=== PATIENT | male | born 1975 | race Caucasian/White ===

== ENCOUNTER 2016-12-15 15:09 | Observation (INO) | payer BC ==
[~2016-12-15 15:09] MED LIST changes: +DIPRIVAN VIAL ONE; +NEOSTIGMINE INJ ONE; +NORCURON INJ 10 MG VIAL ONE; -NS 100 ML IV 100 ML IV ONE; +QUELICIN (OR ANECTINE) ONE; +REGLAN INJ 10 MG VIAL ONE; +ROBINUL ONE; +SUPRANE IN ONE; +VERSED ONE; +XYLOCAINE 2 % (PLAIN) ONE; +ZOFRAN INJ 4 MG VIAL ONE
[2016-12-15 16:53] LABS: BASOPHILS # (AUTO) 0.1 X10^3/uL (0.0-0.1); BASOPHILS % (AUTO) 0.3 % (0.2-1.0); EOSINOPHILS % (AUTO) 0.1 % (0.9-2.9); HEMOGLOBIN 17.8 g/dL (13.5-18.0); LYMPHOCYTES # (AUTO) 1.6 X10^3/uL (1.3-2.9); LYMPHOCYTES % (AUTO) 8.4 % (21.0-51.0); MEAN CORPUSCULAR HEMOGLOBIN 28.3 pg (27.0-34.0); MEAN CORPUSCULAR HGB CONC 34.2 g/dL (33.0-35.0); MEAN CORPUSCULAR VOLUME 82.7 fL (80.0-100.0); MEAN PLATELET VOLUME 8.6 fL (7.4-11.0); MONOCYTES # (AUTO) 1.5 x10^3/uL (0.3-0.8); MONOCYTES % (AUTO) 7.8 % (0.0-13.0); NEUTROPHILS # (AUTO) 16.2 x10^3/uL (2.2-4.8); NEUTROPHILS % (AUTO) 83.4 % (42.0-75.0); PLATELET COUNT 305 X10^3/uL (150.0-450.0); RED BLOOD COUNT 6.29 X10^6/uL (4.7-6.0); RED CELL DISTRIBUTION WIDTH 14.4 % (11.6-16.5); WHITE BLOOD COUNT 19.4 X10^3/uL (3.6-10.0)
--- NOTE | 2016-12-15 16:58 | RAD ---
HISTORY: Preop for appendectomy Study: Portable chest Comparison: None Findings: The trachea is midline. The cardiac silhouette is unremarkable. The lungs are clear without focal infiltrate or effusion. The bony thorax is unremarkable. IMPRESSION: 1. No acute cardiopulmonary disease. Reported By:
[2016-12-15] MEDS: DILAUDID INJ IVP PRN (17:08)
[2016-12-15] MEDS: NS 1000 ML 1,000 ML IV SCH (17:08)
[2016-12-15 17:09] LABS: ALANINE AMINOTRANSFERASE 45 Units/L (12-78); ALBUMIN 3.6 g/dL (3.4-5.0); ALKALINE PHOSPHATASE 105 Units/L (46-116); ASPARTATE AMINO TRANSFERASE 17 Units/L (15-37); BLOOD UREA NITROGEN 12 mg/dL (7-18); CALCIUM 9.2 mg/dL (8.5-10.1); CARBON DIOXIDE 28.8 mmol/L (21-32); CHLORIDE 98 mmol/L (98-107); COR NA(FOR HYPERGLY) 137 mmol/L (136-145); CREATININE 1.14 mg/dL (0.70-1.30); GLUCOSE 111 mg/dL (65-99); SODIUM 137 mmol/L (136-145); TOTAL PROTEIN 7.8 g/dL (6.4-8.2); eGFR BLACK RACES > 60 (>60); eGFR NON BLACK RACES > 60 (>60)
[2016-12-15] MEDS ORDERED: NS 100 ML IV 100 ML IV ONE (17:21)
[2016-12-15] MEDS ORDERED: ZOSYN VIAL 3.375 GM IV ONE (17:21)
[2016-12-15] MEDS: ZOSYN VIAL 3.375 GM 3.375 GM in NS 100 ML IV + SPIKE MINIBAG* 100 ML IV SCH (17:28)
[2016-12-15] MEDS ORDERED: LR 1000 ML IV 1,000 ML IV ONE (18:33)
[2016-12-15] MEDS ORDERED: ANCEF VIAL 1 GM ONE ×2 (18:33→18:40)
[2016-12-15] MEDS ORDERED: FENTANYL INJ 250 mcg ONE (18:33)
[2016-12-15] MEDS ORDERED: NS 50 ML IV + SPIKE MINIBAG* 50 ML IV ONE (18:33)
[2016-12-15] MEDS ORDERED: XYLOCAINE 1 % (PLAIN) ONE (19:00)
[2016-12-15] MEDS ORDERED: MARCAINE 0.25% WITH EPI IJ ONE (19:00)
[2016-12-15 19:16] LABS: BILIRUBIN,URINE NEGATIVE (NEGATIVE); BLOOD/HEMOGLOBIN,URINE NEGATIVE (NEGATIVE); GLUCOSE, URINE NEGATIVE (NEGATIVE); KETONES,URINE NEGATIVE (NEGATIVE); LEUKOCYTE ESTERASE ,URINE NEGATIVE (NEGATIVE); NITRITES,URINE NEGATIVE (NEGATIVE); PH,URINE 6.5 (5.0 - 8.0); PROTEIN,URINE 1+ (NEGATIVE); UROBILINOGEN,URINE NORMAL (NORMAL)
[2016-12-15 19:28] LABS: APPEARANCE,URINE CLEAR (CLEAR); COLOR,URINE YELLOW (YELLOW); RBC,URINE NONE SEEN /HPF (NEGATIVE)
[2016-12-15 19:29] LABS: BACTERIA,URINE TRACE /HPF (NEGATIVE); SQUAMOUS EPITHELIAL CELL,UR RARE /HPF (NEGATIVE)
--- NOTE | 2016-12-15 19:30 | DR.UPDATE ---
H&P Update History and Physical Update: WAS SEEN TODAY IN OUR OFFICE. A H&P WAS COMPLETED PRIOR TO ADMISSION. PATIENT HAS BEEN SEEN AND EXAMINED WITH NO CHANGES NOTED. Changes noted: NO Yes with the following:
[2016-12-15] MEDS ORDERED: NS IRRIGATION 1000 ML 1,000 ML IR ONE (19:33)
[2016-12-15] MEDS ORDERED: ZOFRAN INJ 4 MG VIAL IVP PRN ×2 (20:02→20:24)
[2016-12-15] MEDS ORDERED: DILAUDID INJ IVP PRN (20:24)
[2016-12-15] MEDS ORDERED: REGLAN INJ 10 MG VIAL IVP PRN (20:24)
[2016-12-15] MEDS ORDERED: PHENERGAN INJ 25 MG IVP PRN (20:24)
[2016-12-15] MEDS ORDERED: BENADRYL INJ 50 MG VIAL IVP PRN (20:24)
[2016-12-15] MEDS ORDERED: DILAUDID INJ IVP ONE (20:42)
[2016-12-15] MEDS ORDERED: DILAUDID INJ ONE (20:44)
[2016-12-15 21:49] VITALS: BMI 32.6
[2016-12-15] MEDS: NORCO 5/325 MG TAB PO PRN (22:16)
[2016-12-16] MEDS: DILAUDID INJ IVP PRN ×2 (00:02→12:18)
[2016-12-16] MEDS: ZOSYN VIAL 3.375 GM 3.375 GM in NS 100 ML IV + SPIKE MINIBAG* 100 ML IV SCH ×5 (00:17→23:41)
[2016-12-16] MEDS: NORCO 5/325 MG TAB PO PRN ×2 (03:25→17:33)
[2016-12-16] MEDS: NS 1000 ML 1,000 ML IV SCH ×2 (05:22→21:34)
[2016-12-16 05:40] LABS: ALANINE AMINOTRANSFERASE 40 Units/L (12-78); ALBUMIN 3.1 g/dL (3.4-5.0); ALKALINE PHOSPHATASE 92 Units/L (46-116); ASPARTATE AMINO TRANSFERASE 13 Units/L (15-37); BLOOD UREA NITROGEN 14 mg/dL (7-18); CALCIUM 8.5 mg/dL (8.5-10.1); CARBON DIOXIDE 27.4 mmol/L (21-32); CHLORIDE 100 mmol/L (98-107); COR CA(FOR HYPOALB) 9.2 mg/dL (8.5-10.1); COR NA(FOR HYPERGLY) 138 mmol/L (136-145); CREATININE 1.25 mg/dL (0.70-1.30); GLUCOSE 120 mg/dL (65-99); SODIUM 138 mmol/L (136-145); TOTAL PROTEIN 7.2 g/dL (6.4-8.2); eGFR BLACK RACES > 60 (>60); eGFR NON BLACK RACES > 60 (>60)
[2016-12-16 05:44] LABS: BASOPHILS % (AUTO) 0.1 % (0.2-1.0); EOSINOPHILS % (AUTO) 0.1 % (0.9-2.9); HEMATOCRIT 48.2 % (42.0-54.0); HEMOGLOBIN 16.3 g/dL (13.5-18.0); LYMPHOCYTES # (AUTO) 1.5 X10^3/uL (1.3-2.9); LYMPHOCYTES % (AUTO) 7.9 % (21.0-51.0); MEAN CORPUSCULAR HEMOGLOBIN 28.5 pg (27.0-34.0); MEAN CORPUSCULAR HGB CONC 33.8 g/dL (33.0-35.0); MEAN CORPUSCULAR VOLUME 84.3 fL (80.0-100.0); MEAN PLATELET VOLUME 9.3 fL (7.4-11.0); MONOCYTES # (AUTO) 1.4 x10^3/uL (0.3-0.8); MONOCYTES % (AUTO) 7.8 % (0.0-13.0); NEUTROPHILS # (AUTO) 15.5 x10^3/uL (2.2-4.8); NEUTROPHILS % (AUTO) 84.1 % (42.0-75.0); PLATELET COUNT 307 X10^3/uL (150.0-450.0); RED BLOOD COUNT 5.72 X10^6/uL (4.7-6.0); RED CELL DISTRIBUTION WIDTH 14.6 % (11.6-16.5); WHITE BLOOD COUNT 18.5 X10^3/uL (3.6-10.0)
[2016-12-16] MEDS ORDERED: PATIENT'S HOME MEDICATION (Losartan/Hydrochlorothiazide [Losartan-Hctz 100-25 Mg Tab] 1 TA PO SCH (09:00)
[2016-12-16] MEDS ORDERED: PHENTERMINE HCL PO SCH (09:00)
[2016-12-16] MEDS: HYZAAR 50/12.5 MG PO SCH (09:20)
[2016-12-16] MEDS: PROCARDIA XL PO SCH (09:20)
--- NOTE | 2016-12-16 17:05 | PCM.PROG ---
Progress Note - Progress Note for Day of Date: 12/16/16 - Subjective Subjective: WAS ADMITTED YESTERDAY FOR ACUTE APPENDICITIS. A LAPROSCOPIC APPENDECTOMY WAS DONE YESTERDAY EVENING. HE IS AWAKE AND ORIENTED ON MORNING ROUNDS. VITALS THIS AM ARE 98.5, 115, 20, 91%, 143/76. LABS WNL EXCEPT WBC 18.5, AST 13, ALBUMIN 3.1. WE WILL RECHECK LABS IN AM AND PLAN TO DISCHARGE WHEN IS READY. - Past Medical Family Social History Past Med/Fam/Surg Hx: No changes since H&P Allergies: Allergies No Known Drug Allergies Allergy (Verified 12/15/16 15:58) - Review of Systems ROS: No change since H&P - Vital Signs and I&O's Vital Signs: Temperature 99.1 F Pulse Rate [Right Brachial] 105 Pulse Rate 88 Respiratory Rate 20 Blood Pressure [Right Arm] 121/80 Blood Pressure 135/72 O2 Sat by Pulse Oximetry 90 Intake and Output: Intake & Output 12/14/16 12/15/16 12/16/16 12/17/16 11:59 11:59 11:59 11:59 Intake Total 200 840 Output Total 2200 Balance -2000 840 - Physical Exam Oriented: Normal. negative: Time, Person, Place, Not Oriented, Unable to test, Other Eyes: Normal. negative: Blurred Vision, Diplopia, Discharge, Pain, Redness, Photophobia, Other Ear: Normal. negative: Right, Left, Swelling, Ecchymosis, Hemotypanum, Abrasion , Laceration Nose: Normal. negative: Injected, Discharge, Blood, Other Throat: Normal. negative: Tonsillar Hypertrophy, Red, Exudate, Dry, Other Respiratory: Normal. negative: Right, Left, Generalized, Superior, Inferior, Diminished, Wheezes, Rales, Rhonchi, OTHER : Normal. negative: Dysuria, Hematuria, Frequency, Discharge, Testicular Pain , Bleeding, , Other Auscultation: Bowel Sounds: Normal. negative: Bruit, Absent, Increased, Decreased, High Pitched, Other Palpation: Normal Tenderness: RLQ, Moderate Skin: Normal. negative: Decreased Turgur, Rash, Papular, Macular, Maculopapular , Vesicular, Pustular, Petechial, Red, Tender, Hot, Diaphoresis, Wound, Bruising , Ecchymosis, Other Musculoskeletal: Normal. negative: Right, Left, Shoulder, Clavicle, Arm, Elbow , Forearm, Wrist, Hand, Hip, Thigh, Knee, Leg, Ankle, Foot, Back:Thoracic, Back: Lumbar, Back:Midline, Back:Paraspinous, Pelvis, Swelling, Tender, Deformity, Pulse Deficit, Motor Deficit, Sensory Deficit, Instability, Crepitance Psychiatric: Normal Mood Description: Calm Affect: Normal Speech Pattern: Clear, Appropriate - Laboratory and Diagnostics Result Diagrams: 12/16/16 03:45 12/16/16 03:45 Labs: Laboratory WBC 18.5 X10^3/uL (3.6-10.0) H 12/16/16 03:45 RBC 5.72 X10^6/uL (4.7-6.0) 12/16/16 03:45 Hgb 16.3 g/dL (13.5-18.0) 12/16/16 03:45 Hct 48.2 % (42.0-54.0) 12/16/16 03:45 MCV 84.3 fL (80.0-100.0) 12/16/16 03:45 MCH 28.5 pg (27.0-34.0) 12/16/16 03:45 MCHC 33.8 g/dL (33.0-35.0) 12/16/16 03:45 RDW 14.6 % (11.6-16.5) 12/16/16 03:45 Plt Count 307 X10^3/uL (150.0-450.0) 12/16/16 03:45 MPV 9.3 fL (7.4-11.0) 12/16/16 03:45 Neut % 84.1 % (42.0-75.0) H 12/16/16 03:45 Lymph % 7.9 % (21.0-51.0) L 12/16/16 03:45 [place] % 7.8 % (0.0-13.0) 12/16/16 03:45 Eos % 0.1 % (0.9-2.9) L 12/16/16 03:45 Baso % 0.1 % (0.2-1.0) L 12/16/16 03:45 Neut # 15.5 x10^3/uL (2.2-4.8) H 12/16/16 03:45 Lymph # 1.5 X10^3/uL (1.3-2.9) 12/16/16 03:45 [place] # 1.4 x10^3/uL (0.3-0.8) H 12/16/16 03:45 Eos # 0.0 x10^3/uL (0.0-0.2) 12/16/16 03:45 Baso # 0.0 X10^3/uL (0.0-0.1) 12/16/16 03:45 Absolute Nucleated RBC 0.1 /100WBC 12/16/16 03:45 Sodium 138 mmol/L (136-145) 12/16/16 03:45 Corrected Sodium 138 mmol/L (136-145) 12/16/16 03:45 Potassium 4.0 mmol/L (3.5-5.1) 12/16/16 03:45 Chloride 100 mmol/L (98-107) 12/16/16 03:45 Carbon Dioxide 27.4 mmol/L (21-32) 12/16/16 03:45 BUN 14 mg/dL (7-18) 12/16/16 03:45 Creatinine 1.25 mg/dL (0.70-1.30) 12/16/16 03:45 Est GFR (MDRD) Af Amer > 60 (>60) 12/16/16 03:45 Est GFR (MDRD) Non-Af > 60 (>60) 12/16/16 03:45 Glucose 120 mg/dL (65-99) H 12/16/16 03:45 Calcium 8.5 mg/dL (8.5-10.1) 12/16/16 03:45 Corrected Calcium 9.2 mg/dL (8.5-10.1) 12/16/16 03:45 Total Bilirubin 0.80 mg/dL (0.2-1.0) 12/16/16 03:45 AST 13 Units/L (15-37) L 12/16/16 03:45 ALT 40 Units/L (12-78) 12/16/16 03:45 Alkaline Phosphatase 92 Units/L (46-116) 12/16/16 03:45 Total Protein 7.2 g/dL (6.4-8.2) 12/16/16 03:45 Albumin 3.1 g/dL (3.4-5.0) L 12/16/16 03:45 Globulin 4.1 g/dL (2.5-4.5) 12/16/16 03:45 Albumin/Globulin Ratio 0.8 Ratio (1.1-2.1) L 12/16/16 03:45 Specimen Type Clean catch urine 12/15/16 19:00 Urine Color Yellow (YELLOW) 12/15/16 19:00 Urine Appearance Clear (CLEAR) 12/15/16 19:00 Urine pH 6.5 (5.0 - 8.0) 12/15/16 19:00 Ur Specific [place] 1.010 (1.000-1.030) 12/15/16 19:00 Urine Protein 1+ (NEGATIVE) 12/15/16 19:00 Urine Glucose (UA) Negative (NEGATIVE) 12/15/16 19:00 Urine Ketones Negative (NEGATIVE) 12/15/16 19:00 Urine Occult Blood Negative (NEGATIVE) 12/15/16 19:00 Urine Nitrite Negative (NEGATIVE) 12/15/16 19:00 Urine Bilirubin Negative (NEGATIVE) 12/15/16 19:00 Urine Urobilinogen Normal (NORMAL) 12/15/16 19:00 Ur Leukocyte Esterase Negative (NEGATIVE) 12/15/16 19:00 Urine RBC None seen /HPF (NEGATIVE) 12/15/16 19:00 Urine WBC None seen /HPF (NEGATIVE) 12/15/16 19:00 Ur Squamous Epith Cells Rare /HPF (NEGATIVE) 12/15/16 19:00 Urine Bacteria Trace /HPF (NEGATIVE) 12/15/16 19:00 Ur Culture Indicated? No/not indicated 12/15/16 19:00 Tissue Pathology To follow 12/15/16 20:03 - Plan (1) Acute appendicitis Status: Acute Qualifiers: Acute appendicitis type: A Plan: S/P APPENDECTOMY, CONTINUE ZOSYN 3.375 IV Q6H, DILAUDID 1MG IV Q4PRN, NORCO PO, CONTINUE TO MONITOR
[2016-12-17] MEDS: NORCO 5/325 MG TAB PO PRN (03:23)
[2016-12-17 05:14] LABS: BASOPHILS % (AUTO) 0.3 % (0.2-1.0); EOSINOPHILS # (AUTO) 0.1 x10^3/uL (0.0-0.2); EOSINOPHILS % (AUTO) 1.1 % (0.9-2.9); HEMATOCRIT 46.2 % (42.0-54.0); HEMOGLOBIN 15.7 g/dL (13.5-18.0); LYMPHOCYTES # (AUTO) 2.3 X10^3/uL (1.3-2.9); LYMPHOCYTES % (AUTO) 21.4 % (21.0-51.0); MEAN CORPUSCULAR HEMOGLOBIN 28.7 pg (27.0-34.0); MEAN CORPUSCULAR VOLUME 84.3 fL (80.0-100.0); MEAN PLATELET VOLUME 8.9 fL (7.4-11.0); MONOCYTES % (AUTO) 9.4 % (0.0-13.0); NEUTROPHILS # (AUTO) 7.2 x10^3/uL (2.2-4.8); NEUTROPHILS % (AUTO) 67.8 % (42.0-75.0); PLATELET COUNT 285 X10^3/uL (150.0-450.0); RED BLOOD COUNT 5.48 X10^6/uL (4.7-6.0); RED CELL DISTRIBUTION WIDTH 14.7 % (11.6-16.5); WHITE BLOOD COUNT 10.6 X10^3/uL (3.6-10.0)
[2016-12-17 05:18] LABS: ALANINE AMINOTRANSFERASE 26 Units/L (12-78); ALBUMIN 2.9 g/dL (3.4-5.0); ALKALINE PHOSPHATASE 85 Units/L (46-116); ASPARTATE AMINO TRANSFERASE 12 Units/L (15-37); BLOOD UREA NITROGEN 10 mg/dL (7-18); CALCIUM 8.8 mg/dL (8.5-10.1); CARBON DIOXIDE 27.2 mmol/L (21-32); CHLORIDE 100 mmol/L (98-107); COR CA(FOR HYPOALB) 9.7 mg/dL (8.5-10.1); CREATININE 1.16 mg/dL (0.70-1.30); GLUCOSE 97 mg/dL (65-99); SODIUM 136 mmol/L (136-145); TOTAL PROTEIN 7.3 g/dL (6.4-8.2); eGFR BLACK RACES > 60 (>60); eGFR NON BLACK RACES > 60 (>60)
[2016-12-17] MEDS: ZOSYN VIAL 3.375 GM 3.375 GM in NS 100 ML IV + SPIKE MINIBAG* 100 ML IV SCH (05:52)
[2016-12-17 08:10] VITALS: BP 114/74
[2016-12-17] MEDS: PROCARDIA XL PO SCH (08:50)
[2016-12-17] MEDS: HYZAAR 50/12.5 MG PO SCH (08:50)
== END 2016-12-17 10:25 | disposition home or self-care (01) ==
LOC: MED/SURG 15:09
PROVIDERS: ADMIT Internal Medicine; ATTEND Internal Medicine
PROC: 0DTJ4ZZ Resection of Appendix, Percutaneous Endoscopic Approach (ICD-10-PCS; principal; 2016-12-16)
DX: K35.89 Other acute appendicitis (principal)
CPT/HCPCS: 36415; 71010; 80053; 81001; 85025; 93005; A4216; A4222; S0020; G0378; J0330; J0690; J1170; J2001; J2250; J2405; J2543; J2710; J2765; J3010; J3490; J7120

== ENCOUNTER → 2016-12-15 | Outpatient (CLI) | payer BC ==
[2012-10-04 13:30] VITALS: BP 126/81
[~2016-12-15] MED LIST: NS 100 ML IV 100 ML IV ONE
--- NOTE | 2016-12-15 14:26 | CT ---
HISTORY: ACUTE ABDOMINAL BLOATING. Study: CT abdomen and pelvis with contrast Comparison: None. Technique: Multiple axial images of the abdomen and pelvis were obtained from the lung bases to the pubic symph ysis after the administration of IV contrast. Dose reduction techniques including Automated Exposur e Control (AEC) and adjustment of mA and kV were utilized. Findings: Bibasilar scarring versus atelectasis. Otherwise, visualized portions of the lung bases are unremark able. 3 cm simple appearing cyst within the left superior renal pole. Punctate nonobstructing right inferior renal pole nephrolith. Diffuse fatty infiltration of the liver with focal fatty sparing at the gallbladder fossa. Otherwise, the spleen, pancreas, kidneys, and adrenal glands are unremarkable in their CT appearance. The gallbladder is unremarkable in its CT appearance. The appendix is dila blake to 17 of mm with associated para appendiceal stranding. There is a foci of air at the appendicea l tip, that may represent micro perforation. No associated focal fluid collection to suggest abscess formation. No significant free air or free fluid is seen within the abdomen. No pathologic lymphade nopathy. Remaining large and small bowel appear normal. The prostate gland appears normal. The urina ry bladder is grossly unremarkable. The bony structures are grossly intact. IMPRESSION: 1. Acute appendicitis with suggestion of micro perforation at the tip. No significant free air with in the abdomen or associated focal fluid collection to suggest abscess formation. 2. Other chronic findings as above. Reported By:
== END ==
LOC: RAD 12:57
PROVIDERS: ATTEND Nurse Practitioner
DX: R10.84 Generalized abdominal pain (principal); R14.0 Abdominal distension (gaseous)
CPT/HCPCS: 74177; A4222

== ENCOUNTER 2016-12-22 09:14 | Emergency (ER) | payer BC ==
--- NOTE | 2016-12-22 09:19 | DR.GENAD ---
HPI - HPI Comment HPI Comment: Complaint of short of breath right lung x 1 day. - Nurses notes reviewed Nurses Notes Review: Yes - Source History Provided: Patient - Mode of Arrival Mode of Arrival: Ambulatory - Timing Came on: Suddenly - Duration Duration: Constant How lon Duration: Days - Location Location: right lung - Severity Severity: Moderate - Modifying Factors Worsens:: movement PMH - PMH Past Medical History: Yes Past Surgical History: Yes Surgical History: Appendectomy Unable to Obtain Due To: denies: Altered mental status, Dementia, Medical urgency, Intubated - Family History Family Medical History: Heart Failure - Social History Does patient currently use any type of tobacco product: No Lives With: Spouse Lives Where: Home ROS - Review of Systems Constitutional: No Symptoms Reported Eyes: No Symptoms Reported ENTM: No Symptoms Reported Respiratoy: Short of Breath Cardiovascular: Chest Pain (right ribs) Gastrointestinal/Abdominal: No Symptoms Reported Genitourinary: No Symptoms Reported Neurological: No Symptoms Reported Musculoskeletal: No Symptoms Reported Integumentary: No Symptoms Reported Hematologic/Lymphatic: No Symptoms Reported Endocrine: No Symptoms Reported Psychiatric: No Symptoms Reported All Other Systems: Reviewed and Negative PE - Vital Signs Vitals: Temperature 97.6 F Pulse Rate 99 Respiratory Rate 22 Blood Pressure [Right Arm] 114/74 Blood Pressure 131/89 O2 Sat by Pulse Oximetry 98 - General Limitations: No Limitations General Appearance: Alert, In No Apparent Distress - Head Head Exam: Normal Inspection - Eyes Eye exam: Normal Appearance, EOMI. negative: Scleral Icterus, Conjunctival Injection - ENT ENT Exam: Normal Exam, Normal Oropharynx External Ear Exam: Normal External Inspection Mouth Exam: Normal Inspection - Neck Neck Exam: Normal Inspection, Full ROM, Trachea Midline - Chest Chest Inspection: Normal Inspection - Respiratory Respiratory Exam: Normal Lung Sounds Bilat. negative: Accessory Muscle Use, Respiratory Distress Respiratory Exam: Bilateral Clear to Auscultation - Cardiovascular Cardiovascular Exam: Regular Rate - Extremities Extremities Exam: Normal Inspection, Full ROM, Tenderness - Back Back Exam: Normal Inspection, Full ROM - Neurologic Neurological Exam: Alert, Oriented X3, CN II-XII Intact - Psychiatric Psychiatric Exam: Anxious - Skin Skin Exam: Intact, Normal Color ROR - Labs Reviewed Result Diagrams: 12/22/16 10:25 12/22/16 10:25 Laboratory: WBC 13.2 X10^3/uL (3.6-10.0) H 12/22/16 10:25 RBC 6.07 X10^6/uL (4.7-6.0) H 12/22/16 10:25 Hgb 17.2 g/dL (13.5-18.0) 12/22/16 10:25 Hct 50.9 % (42.0-54.0) 12/22/16 10:25 MCV 83.9 fL (80.0-100.0) 12/22/16 10:25 MCH 28.3 pg (27.0-34.0) 12/22/16 10:25 MCHC 33.7 g/dL (33.0-35.0) 12/22/16 10:25 RDW 14.4 % (11.6-16.5) 12/22/16 10:25 Plt Count 447 X10^3/uL (150.0-450.0) 12/22/16 10:25 MPV 8.1 fL (7.4-11.0) 12/22/16 10:25 Neut % 66.4 % (42.0-75.0) 12/22/16 10:25 Lymph % 21.0 % (21.0-51.0) 12/22/16 10:25 [place] % 9.6 % (0.0-13.0) 12/22/16 10:25 Eos % 2.1 % (0.9-2.9) 12/22/16 10:25 Baso % 0.9 % (0.2-1.0) 12/22/16 10:25 Neut # 8.7 x10^3/uL (2.2-4.8) H 12/22/16 10:25 Lymph # 2.8 X10^3/uL (1.3-2.9) 12/22/16 10:25 [place] # 1.3 x10^3/uL (0.3-0.8) H 12/22/16 10:25 Eos # 0.3 x10^3/uL (0.0-0.2) H 12/22/16 10:25 Baso # 0.1 X10^3/uL (0.0-0.1) 12/22/16 10:25 Absolute Nucleated RBC 0.1 /100WBC 12/22/16 10:25 D-Dimer 1120 ng/mL (0-400) H* 12/22/16 10:25 Sodium 138 mmol/L (136-145) 12/22/16 10:25 Corrected Sodium TNP 12/22/16 10:25 Potassium 3.9 mmol/L (3.5-5.1) 12/22/16 10:25 Chloride 100 mmol/L (98-107) 12/22/16 10:25 Carbon Dioxide 29.8 mmol/L (21-32) 12/22/16 10:25 BUN 17 mg/dL (7-18) 12/22/16 10:25 Creatinine 1.29 mg/dL (0.70-1.30) 12/22/16 10:25 Est GFR (MDRD) Af Amer > 60 (>60) 12/22/16 10:25 Est GFR (MDRD) Non-Af > 60 (>60) 12/22/16 10:25 Glucose 106 mg/dL (65-99) H 12/22/16 10:25 Calcium 9.2 mg/dL (8.5-10.1) 12/22/16 10:25 - XRAY XRAY Interpreted by: Radiologist XRAY Findings: Chest xray: no infiltrate CTA: no PE - Diagnosis Discharge Problem: Rib pain on right side - Discharge Plan Condition: Stable Prescriptions: Prednisone [Prednisone DS Dosepak 10 mg (12 day)] 1 shad PO ONCE #1 shad Tramadol HCl [ULTRAM 50 MG *] 50 mg PO Q8H PRN #21 tab PRN Reason: Pain - Follow ups/Referrals Follow ups/Referrals: Gatito Woodard [Primary Care Provider] - 3 days - Instructions
[2016-12-22 09:25] VITALS: BP 131/89; BMI 31.5
[2016-12-22] MEDS ORDERED: TORADOL 60 MG VIAL IM ONE (10:05)
[2016-12-22] MEDS ORDERED: TORADOL 60 MG VIAL ONE (10:10)
--- NOTE | 2016-12-22 10:23 | RAD ---
HISTORY: Chest pain, hemoptysis Study: Chest two views Comparison: December 15, 2016 Findings: The trachea is midline. The cardiac silhouette is unremarkable. The lungs are clear without focal infiltrate or effusion. The bony thorax is unremarkable. IMPRESSION: 1. No acute cardiopulmonary disease. Reported By:
[2016-12-22 10:31] LABS: BASOPHILS # (AUTO) 0.1 X10^3/uL (0.0-0.1); BASOPHILS % (AUTO) 0.9 % (0.2-1.0); EOSINOPHILS # (AUTO) 0.3 x10^3/uL (0.0-0.2); EOSINOPHILS % (AUTO) 2.1 % (0.9-2.9); HEMATOCRIT 50.9 % (42.0-54.0); HEMOGLOBIN 17.2 g/dL (13.5-18.0); LYMPHOCYTES # (AUTO) 2.8 X10^3/uL (1.3-2.9); MEAN CORPUSCULAR HEMOGLOBIN 28.3 pg (27.0-34.0); MEAN CORPUSCULAR HGB CONC 33.7 g/dL (33.0-35.0); MEAN CORPUSCULAR VOLUME 83.9 fL (80.0-100.0); MEAN PLATELET VOLUME 8.1 fL (7.4-11.0); MONOCYTES # (AUTO) 1.3 x10^3/uL (0.3-0.8); MONOCYTES % (AUTO) 9.6 % (0.0-13.0); NEUTROPHILS # (AUTO) 8.7 x10^3/uL (2.2-4.8); NEUTROPHILS % (AUTO) 66.4 % (42.0-75.0); PLATELET COUNT 447 X10^3/uL (150.0-450.0); RED BLOOD COUNT 6.07 X10^6/uL (4.7-6.0); RED CELL DISTRIBUTION WIDTH 14.4 % (11.6-16.5); WHITE BLOOD COUNT 13.2 X10^3/uL (3.6-10.0)
[2016-12-22 10:37] LABS: BLOOD UREA NITROGEN 17 mg/dL (7-18); CALCIUM 9.2 mg/dL (8.5-10.1); CARBON DIOXIDE 29.8 mmol/L (21-32); CHLORIDE 100 mmol/L (98-107); CREATININE 1.29 mg/dL (0.70-1.30); GLUCOSE 106 mg/dL (65-99); SODIUM 138 mmol/L (136-145); eGFR BLACK RACES > 60 (>60); eGFR NON BLACK RACES > 60 (>60)
[2016-12-22 11:10] LABS: D DIMER 1120 ng/mL (0-400)
[2016-12-22] MEDS ORDERED: NS 100 ML IV 100 ML IV ONE (12:05)
--- NOTE | 2016-12-22 12:47 | CT ---
HISTORY: Shortness of breath, elevated D-dimer Study: CTA chest with contrast for pulmonary embolus Comparison: None Technique: Axial post-contrast images with coronal, sagittal, and 3 dimensional maximum intensity pr ojection images obtained in evaluated. Dose reduction procedures were used with MA/kv adjusted for b bryson size Findings: There is no evidence for acute pulmonary thromboembolic disease in the main pulmonary artery, right and left main pulmonary arteries, lobar branches and proximal most segmental branches. Evaluation mo re distally is not possible due to suboptimal bolus timing. Examination the mediastinum demonstrated no evidence for mediastinal masses, enlarged lymphadenopathy, or enlarged hilar adenopathy. No pleu ral effusions are identified. The right hemidiaphragm is elevated. No chest wall or axillary abnorma lity is identified. Those portions of the upper abdominal organs visualized were within normal limit s. Examination of the lung ramires demonstrated no significant nodules, masses, alveolar infiltrates, areas of consolidation, peribronchial thickening. Bibasilar subsegmental atelectasis is present. Bi basilar bronchiectasis is present. IMPRESSION: No evidence for acute pulmonary thromboembolic disease in the main pulmonary artery, right and left main pulmonary artery, lobar branches and proximal most segmental branches. Evaluation more distally is not possible due to suboptimal bolus timing Bibasilar subsegmental atelectasis. Bibasilar bronchiectasis Reported By:
== END 2016-12-22 13:14 | disposition home or self-care (01) ==
LOC: ER 09:30
DX: R07.89 Other chest pain (principal)
CPT/HCPCS: 36415; 71020; 71275; 80048; 85025; 85378; 96365; 99283; A4222; J1885